=== PATIENT | male | born 1960 | race Caucasian/White ===

== ENCOUNTER → 2016-10-08 | Outpatient (CLI) | payer BC, OTHER ==
[2016-10-08 14:46] LABS: HEMOGLOBIN A1C 7.91 % (4.2-6.0)
== END ==
LOC: MOB LAB 13:46
DX: E11.9 Type 2 diabetes mellitus without complications (principal); Z79.4 Long term (current) use of insulin; Z96.41 Presence of insulin pump (external) (internal)
CPT/HCPCS: 36415; 83036

== ENCOUNTER → 2017-02-11 | Outpatient (CLI) | payer BC, OTHER ==
[2017-02-11 15:42] LABS: BILIRUBIN,URINE NEGATIVE (NEG); CLARITY,URINE CLEAR (CLEAR); COLOR,URINE YELLOW; GLUCOSE, URINE (UA) 500 mg/dL (NEG); NITRATE,URINE NEGATIVE (NEG); OCCULT BLOOD,URINE NEGATIVE (NEG); PROTEIN,URINE NEGATIVE (NEG); UROBILINOGEN,URINE 0.2 mg/dL (0.2)
[2017-02-11 15:44] LABS: BASOPHILS # (AUTO) 0.04 10*3/UL; BASOPHILS % (AUTO) 0.5 % (0-1); EOSINOPHILS # (AUTO) 0.09 10*3/UL; EOSINOPHILS % (AUTO) 1.1 % (0-8); HEMATOCRIT 44.6 % (42.0-52.0); HEMOGLOBIN 15.3 g/dL (14.0-18.0); LYMPHOCYTES # (AUTO) 2.04 10*3/uL; MEAN CORPUSCULAR HEMOGLOBIN 30.8 PG (27-31); MEAN CORPUSCULAR HGB CONC 34.3 g/dL (33-37); MEAN CORPUSCULAR VOLUME 89.7 FL (80-90); MEAN PLATELET VOLUME 10.2 FL (7.4-12.2); MONOCYTES # (AUTO) 0.47 10*3/UL (0.3-0.8); NEUTROPHILS # (AUTO) 5.21 10*3/UL; NEUTROPHILS % (AUTO) 66.2 % (50-80); RED BLOOD COUNT 4.97 10^6/uL (4.70-6.10)
[2017-02-11 15:46] LABS: PLATELET MORPHOLOGY COMMENT NORMAL MORPHOLOGY (NORM); RBC MORPHOLOGY COMMENT NORMAL MORPHOLOGY (NORM); WBC MORPHOLOGY COMMENT NORMAL MORPHOLOGY (NORM)
[2017-02-11 15:48] LABS: SQUAMOUS EPITHELIAL CELL,UR RARE; URINE SAMPLE TYPE VOIDED SPECIMEN
[2017-02-11 15:50] LABS: BLOOD UREA NITROGEN 17 mg/dL (7-22); BUN/CREATININE RATIO 21.25 (6-20); CALCIUM 9.3 mg/dL (8.7-10.7); EST GLOMERULAR FILTRATION > 60 (>60 ml/min/1.73m(2)); SERUM ALBUMIN 4.5 g/dL (3.5-4.8)
[2017-02-11 15:51] LABS: CHOL/HDL RATIO 3.24 RATIO (0-4.0); LDL CHOLESTEROL,CALCULATED 80.4 mg/dL
[2017-02-11 16:08] LABS: CREATININE, URINE 114.6 MG/DL (15-500); HEMOGLOBIN A1C 7.37 % (4.2-6.0)
[2017-02-11 16:52] LABS: VITAMIN D 25-HYDROXY 43.5 NG/ML (30-100)
== END ==
LOC: MOB LAB 14:38
DX: E11.9 Type 2 diabetes mellitus without complications (principal); Z79.4 Long term (current) use of insulin; E78.5 Hyperlipidemia, unspecified; N20.0 Calculus of kidney; E55.9 Vitamin D deficiency, unspecified
CPT/HCPCS: 36415; 80053; 80061; 81001; 82043; 82306; 83036; 84443; 85025